=== PATIENT | female | born 1945 | race Caucasian/White ===

== ENCOUNTER 2021-12-31 22:40 | Observation (INO) ==
[2021-12-31] MEDS ORDERED: Ketorolac 60 MG/2 ML VIAL IM ONE (22:45)
[2021-12-31] MEDS ORDERED: Orphenadrine 60 MG/2 ML VIAL IM ONE (22:45)
[2021-12-31] MEDS ORDERED: *HR* OxyCODONE/APAP 5/325 TABLET PO ONE (22:46)
[2022-01-01 01:14] LABS: Bilirubin,Urine Negative (Negative); Blood,Urine Trace-intact (Negative); Clarity,Urine Clear (Clear); Color,Urine Yellow (Yellow); Glucose,Urine (UA) Normal (Normal); Ketones,Urine Negative (Negative); Leukocyte Esterase,Urine Small (Negative); Nitrite,Urine Negative (Negative); Protein,Urine Negative (Neg-Trace); Specific Gravity,Urine 1.015 (1.010-1.025); Urobilinogen,Urine Normal (Normal)
[2022-01-01 02:05] LABS: Basophils % 0.2 %; Eosinophils % 0.2 %; Hematocrit 42.7 % (35.3-44.9); Hemoglobin 14.1 g/dL (11.5-15.4); Immature Granulocytes % 0.3 % (0-4); Lymphocytes # 2.5 K/mcL (0.6-4.6); Lymphocytes % 23.7 %; Mean Corpuscular Hemoglobin 30.2 pg (28.0-33.3); Mean Corpuscular Volume 91.4 fL (83.0-100.0); Monocytes # 0.7 K/mcL (0.0-1.3); Monocytes % 6.6 %; Neutrophils # 7.3 K/mcL (1.6-8.9); Platelet Count 287 K/mcL (140-400); Red Blood Count 4.67 M/mcL (3.82-4.97); Red Cell Distribution Width 12.7 % (11.5-14.5); White Blood Count 10.5 K/mcL (4.3-11.1)
[2022-01-01 02:23] LABS: BUN/Creatinine Ratio 26 (6-26); Blood Urea Nitrogen 18 mg/dL (8-23); Calcium 8.8 mg/dL (8.6-10.3); Carbon Dioxide 31 mEq/L (23-29); Chloride 97 mEq/L (98-107); Glucose 88 mg/dL (70-105); Osmolality,Calculated 277 (280-300); Potassium 4.2 mEq/L (3.5-5.1); Sodium 133 mEq/L (136-145)
[2022-01-01] MEDS ORDERED: Gabapentin 300 MG CAPSULE PO ONE (02:32)
[2022-01-01] MEDS ORDERED: Ondansetron ODT 4 MG TAB.RAPDIS SL PRN (02:44)
[2022-01-01] MEDS ORDERED: Naloxone 0.4 MG/ML INJ IVP PRN (02:44)
[2022-01-01] MEDS: *HR* HYDROcodone/Acet 5/325 mg TABLET PO SCH ×5 (03:57→21:23)
[2022-01-01] MEDS: Melatonin 3 MG TABLET PO PRN ×2 (03:57→21:23)
[2022-01-01] MEDS ORDERED: predniSONE 20 MG TABLET PO SCH (09:00)
[2022-01-01 09:17] LABS: C-Reactive Protein < 5 mg/L (Less than 10)
[2022-01-01] MEDS: cefTRIAXone 2,000 MG in 0.9 % Sodium Chloride Mini Bag 100 ML IVPB SCH (11:35)
[2022-01-01] MEDS ORDERED: Ketorolac 30 MG/ML VIAL IVP ONE (13:43)
[2022-01-01] MEDS: Gabapentin 300 MG CAPSULE PO SCH ×4 (13:54→21:23)
[2022-01-02] MEDS: *HR* HYDROcodone/Acet 5/325 mg TABLET PO SCH ×6 (03:41→22:36)
[2022-01-02] MEDS: *HR* Enoxaparin 40 MG/0.4 ML SYRINGE SQ SCH (05:45)
[2022-01-02 07:48] LABS: Hematocrit 44.9 % (35.3-44.9); Hemoglobin 14.6 g/dL (11.5-15.4); Mean Corpuscular HGB Conc 32.5 g/dL (31.6-35.5); Mean Corpuscular Hemoglobin 29.9 pg (28.0-33.3); Mean Platelet Volume 10.8 fL (9.4-12.4); Platelet Count 294 K/mcL (140-400); Red Blood Count 4.88 M/mcL (3.82-4.97); Red Cell Distribution Width 12.6 % (11.5-14.5); White Blood Count 11.6 K/mcL (4.3-11.1)
[2022-01-02] MEDS: Gabapentin 300 MG CAPSULE PO SCH ×3 (08:02→22:37)
[2022-01-02] MEDS: cefTRIAXone 2,000 MG in 0.9 % Sodium Chloride Mini Bag 100 ML IVPB SCH (08:03)
[2022-01-02 08:04] LABS: Calcium 8.9 mg/dL (8.6-10.3); Potassium 4.4 mEq/L (3.5-5.1)
[2022-01-02] MEDS: Sennosides/Docusate Sodium TABLET PO SCH (22:36)
[2022-01-03] MEDS: *HR* HYDROcodone/Acet 5/325 mg TABLET PO SCH ×6 (02:13→22:27)
[2022-01-03] MEDS: *HR* Enoxaparin 40 MG/0.4 ML SYRINGE SQ SCH (06:16)
[2022-01-03 07:49] LABS: Hematocrit 42.9 % (35.3-44.9); Hemoglobin 13.9 g/dL (11.5-15.4); Mean Corpuscular HGB Conc 32.4 g/dL (31.6-35.5); Mean Corpuscular Hemoglobin 29.9 pg (28.0-33.3); Mean Corpuscular Volume 92.3 fL (83.0-100.0); Mean Platelet Volume 10.9 fL (9.4-12.4); Platelet Count 290 K/mcL (140-400); Red Blood Count 4.65 M/mcL (3.82-4.97); Red Cell Distribution Width 13.1 % (11.5-14.5); White Blood Count 9.3 K/mcL (4.3-11.1)
[2022-01-03 08:07] LABS: Calcium 8.4 mg/dL (8.6-10.3); Potassium 4.3 mEq/L (3.5-5.1)
[2022-01-03] MEDS: Sennosides/Docusate Sodium TABLET PO SCH ×2 (08:39→21:01)
[2022-01-03] MEDS: Gabapentin 300 MG CAPSULE PO SCH ×3 (08:39→21:00)
[2022-01-03] MEDS: polyethylene glycoL 3350 17 GM POWD.PACK PO SCH (08:40)
[2022-01-03] MEDS ORDERED: Cefdinir 300 MG CAPSULE PO SCH (09:00)
[2022-01-03] MEDS ORDERED: Bisacodyl 10 MG RECTAL SUPPOSITORY RC PRN (20:50)
[2022-01-03] MEDS ORDERED: Lactulose Oral Soln 20 GM/30 ML UDC PO PRN (20:51)
[2022-01-04] MEDS: *HR* HYDROcodone/Acet 5/325 mg TABLET PO SCH ×6 (03:00→21:54)
[2022-01-04] MEDS: *HR* Enoxaparin 40 MG/0.4 ML SYRINGE SQ SCH (06:29)
[2022-01-04] MEDS: Sennosides/Docusate Sodium TABLET PO SCH ×2 (08:22→21:55)
[2022-01-04] MEDS: polyethylene glycoL 3350 17 GM POWD.PACK PO SCH (08:23)
[2022-01-04] MEDS: Gabapentin 300 MG CAPSULE PO SCH ×3 (08:23→21:54)
[2022-01-04] MEDS: Melatonin 3 MG TABLET PO PRN (21:53)
[2022-01-05] MEDS: *HR* HYDROcodone/Acet 5/325 mg TABLET PO SCH ×5 (01:44→17:21)
[2022-01-05] MEDS: *HR* Enoxaparin 40 MG/0.4 ML SYRINGE SQ SCH (05:43)
[2022-01-05] MEDS: Sennosides/Docusate Sodium TABLET PO SCH (08:48)
[2022-01-05] MEDS: polyethylene glycoL 3350 17 GM POWD.PACK PO SCH (08:48)
[2022-01-05] MEDS: Gabapentin 300 MG CAPSULE PO SCH ×2 (08:48→14:12)
[2022-01-05] MEDS ORDERED: Ibuprofen 600 MG TABLET PO PRN (16:26)
[2022-01-05] MEDS ORDERED: predniSONE 20 MG TABLET PO SCH (16:30)
[2022-01-05 19:06] VITALS: BP 127/72; PULSE 84; RESP 17; TEMP 98.2; O2SAT 95
== END 2022-01-05 18:07 | disposition other institution (70) ==
LOC: EMEROOPIK 22:40 → INPPIK 22:40
PROVIDERS: ADMIT Internal Medicine; ATTEND Internal Medicine

== ENCOUNTER 2022-01-05 17:35 | Inpatient (IN) ==
[2022-01-05] MEDS ORDERED: Melatonin 3 MG TABLET PO PRN (18:22)
[2022-01-05] MEDS: *HR* HYDROcodone/Acet 5/325 mg TABLET PO SCH ×2 (21:20→23:31)
[2022-01-05] MEDS: Gabapentin 300 MG CAPSULE PO SCH (21:33)
[2022-01-05] MEDS: Sennosides/Docusate Sodium TABLET PO SCH (21:33)
[2022-01-06] MEDS: *HR* Enoxaparin 40 MG/0.4 ML SYRINGE SQ SCH (05:35)
[2022-01-06] MEDS: *HR* HYDROcodone/Acet 5/325 mg TABLET PO SCH ×3 (05:37→18:05)
[2022-01-06 05:39] LABS: Basophils % 0.2 %; Hematocrit 40.7 % (35.3-44.9); Hemoglobin 13.4 g/dL (11.5-15.4); Immature Granulocytes % 0.4 % (0-4); Lymphocytes # 0.6 K/mcL (0.6-4.6); Mean Corpuscular HGB Conc 32.9 g/dL (31.6-35.5); Mean Corpuscular Hemoglobin 30.5 pg (28.0-33.3); Mean Corpuscular Volume 92.5 fL (83.0-100.0); Mean Platelet Volume 10.8 fL (9.4-12.4); Monocytes # 0.1 K/mcL (0.0-1.3); Monocytes % 1.9 %; Neutrophils # 4.6 K/mcL (1.6-8.9); Platelet Count 280 K/mcL (140-400); Red Cell Distribution Width 12.5 % (11.5-14.5); Segmented Neutrophils % 86.5 %; White Blood Count 5.4 K/mcL (4.3-11.1)
[2022-01-06 06:03] LABS: Calcium 8.7 mg/dL (8.6-10.3); Potassium 4.4 mEq/L (3.5-5.1)
[2022-01-06] MEDS: Sennosides/Docusate Sodium TABLET PO SCH ×2 (07:55→20:46)
[2022-01-06] MEDS: Gabapentin 300 MG CAPSULE PO SCH ×3 (07:55→20:47)
[2022-01-06] MEDS: predniSONE 20 MG TABLET PO SCH (08:01)
[2022-01-06] MEDS: polyethylene glycoL 3350 17 GM POWD.PACK PO SCH (08:02)
[2022-01-06 18:31] VITALS: TEMP 97.6
[2022-01-06] MEDS: Ibuprofen 600 MG TABLET PO PRN (20:47)
[2022-01-07] MEDS: *HR* HYDROcodone/Acet 5/325 mg TABLET PO SCH ×3 (00:45→12:01)
[2022-01-07] MEDS: *HR* Enoxaparin 40 MG/0.4 ML SYRINGE SQ SCH (06:29)
[2022-01-07] MEDS: predniSONE 20 MG TABLET PO SCH (08:10)
[2022-01-07] MEDS: Ibuprofen 600 MG TABLET PO PRN (08:10)
[2022-01-07] MEDS: Sennosides/Docusate Sodium TABLET PO SCH (08:10)
[2022-01-07] MEDS: Gabapentin 300 MG CAPSULE PO SCH ×2 (08:10→15:12)
[2022-01-07] MEDS: polyethylene glycoL 3350 17 GM POWD.PACK PO SCH (08:11)
[2022-01-07 08:24] VITALS: BP 139/59; PULSE 77; RESP 16; O2SAT 98
== END 2022-01-07 16:27 | disposition home or self-care (01) | DRG 552 ==
LOC: INPPIK 19:42
PROVIDERS: ADMIT Family Medicine; ATTEND Family Medicine